=== PATIENT | female | born 1995 | race Caucasian/White ===

== ENCOUNTER 2019-06-26 11:00 | Outpatient (RCR) ==
[2019-05-30 09:10] VITALS: BMI 21.7
--- NOTE | 2019-06-05 15:29 | RS.OPPTDN ---
Subjective Date of Note: 06/05/19 Visit #: 2 Number of visits approved by Insurance: pending Date of Evaluation: 06/04/19 Payer Source: Medicaid Treatment Diagnosis: polyneuropathy, gait abnormality, balance impaired, distal fibular fracture Current Subjective/complaints:: Patient reports right knee "gives way" when walking. States she is not doing much walking due to NWB on left and weakness on right. Reports some fatigue with exercise session today. *Precautions: NWB LLE Interventions - Exercise/Activities/Manual Therapy Exercises/Activities: Assisted hamstring and heel cord stretch on RLE. SLR ( with assist on left), hip abd/add. SAQ and alt hip flexion bialterally, with 1 1 /2# to right and assist to left LE. Isometric hip add with ball. Wand for overhead shoulder flexion and chest press, then shoulder ext with wand and yellow theraband. In sitting, alt hip flexion and LAQ (1 1/2# on right). Yellow theraband ham curl, scap retraction, biceps curls, and UE diagonals. Patient rec 'd CGA to mod with amb with RW, 60' x3reps. Patient demos slight LOB backwards and right knee yosi twice. Works on forward weight-shift in sitting, partial and full sit to/from stand. In standing with RW, works on toe-ups on the right LE with min assist. Patient given copy of additions to HEP. Total minutes of Exercise: EX 40mins, GT 14mins Manual Therapy: n/a HOME EXERCISE PROGRAM: pt given written HEP including; hamstring stretch, RLE heel cord stretch, QS, SLR, hip abd/add, as well as BUE elbow flex/ext, wrist flex/ext, theraputty ex for hands, shld flex, as well as chair push ups. Yellow theraband for scap retaction, biceps curl and UE diagonals. - Charges Timed Code Treatment Minutes: 54mins Total Treatment Time: 60mins Procedures billed for this date of service:: EX3, GT Assessment: Patient demos weakness and difficulty with balance, but is very motivated to progress. She is attentive to all patient education and HEP instruction. Patient Education: Home Exercise Program, Home Safety, Activity Modification Patient demonstrates compliance with HEP?: Yes Short Term Goals Goal #1: pt independent with initial HEP Goal to be met by: 06/13/19 Progress towards Goal:: Progressing Goal #2: pt transfer stand pivot bed to/from chair with CGA with rwx nwb LLE Goal to be met by: 06/13/19 Progress towards Goal:: Progressing Goal #3: pt amb 50ft with rwx NWB LLE with CGA to min x 1 Goal to be met by: 06/13/19 Progress towards Goal:: Progressing Goal #4: Improve BLE strength except L ankle 4/5 Goal to be met by: 06/13/19 Nursing Home Goals Goal #1: Improve dyn stand balance fair Goal to be met by: 07/02/19 Goal #2: pt amb functional in home distances with rwx NWB LLE with SBA Goal to be met by: 07/02/19 Goal #3: pt able to perform toileting including transfers independently Goal to be met by: 07/02/19 Goal #4: Strength BLE 4+/5 except L ankle Goal to be met by: 07/02/19 Plan Dates of Parts Administrator Goals: 07/02/19 Expiration date of current Insurance Approval:: 07/02/19 PLAN: Progress with strengthening and balance activity to return patient to safe and independent with ambulation and all functional activity.
--- NOTE | 2019-06-09 13:33 | RS.OPPTDN ---
Subjective Date of Note: 06/09/19 Visit #: 3 Number of visits approved by Insurance: pending Date of Evaluation: 06/04/19 Payer Source: Medicaid Treatment Diagnosis: polyneuropathy, gait abnormality, balance impaired, distal fibular fracture Current Subjective/complaints:: pt states she is feeling much more shaky the last couple of days which is causing interruption with sleep and increased difficulty with mobility. *Precautions: NWB LLE Pain Assessment - Pain Description Pain Location: L ankle Pain Description: Aching Current Pain Intensity: 3 when arrived increased to 5-6/10 with activity Interventions - Exercise/Activities/Manual Therapy Exercises/Activities: pt received assist with BLE hamstring stretch, RLE heel cord stretch, as well as performed SLR, hip abd/add with 1 1/2# on RLE and assist with LLE 2 sets of 10 reps. pt also performed in hooklying SAQ, alt hip flex with 1 1/2# on R 2 sets of 10 reps. pt performed shld flex, chest press with 1 # wand 2 sets of 10 reps. In sitting pt performed LAQ, seated hip flex with 1 1/2# on RLE, no weight on LLE 2 sets of 10 reps. pt also performed BUE scapular retraction, biceps curls, UE diagonals, elbow ext with yellow theraband 2 sets of 10 reps. pt requires rest periods during ex due to pain in L ankle. pt transferred chair to mat table with wx and NWB LLE with CGA to min x 1. pt unable to amb with standard wx due to UE weakness and rwx unavailable. Manual Therapy: n/a HOME EXERCISE PROGRAM: pt given written HEP including; hamstring stretch, RLE heel cord stretch, QS, SLR, hip abd/add, as well as BUE elbow flex/ext, wrist flex/ext, theraputty ex for hands, shld flex, as well as chair push ups. Yellow theraband for scap retaction, biceps curl and UE diagonals. - Charges Timed Code Treatment Minutes: 49 Total Treatment Time: 55 Procedures billed for this date of service:: ex 3 Assessment: pt more shakey today requiring rest periods between ex due to pain and weakness. pt progressing slowly toward goals. Patient Education: Home Exercise Program, Education of Plan of Care Patient demonstrates compliance with HEP?: Yes Short Term Goals Goal #1: pt independent with initial HEP Goal to be met by: 06/13/19 Progress towards Goal:: Progressing Goal #2: pt transfer stand pivot bed to/from chair with CGA with rwx nwb LLE Goal to be met by: 06/13/19 Progress towards Goal:: Progressing Goal #3: pt amb 50ft with rwx NWB LLE with CGA to min x 1 Goal to be met by: 06/13/19 Progress towards Goal:: Progressing Goal #4: Improve BLE strength except L ankle 4/5 Goal to be met by: 06/13/19 Progress towards Goal:: Progressing Noxious Weeds And Pest Inspector Goals Goal #1: Improve dyn stand balance fair Goal to be met by: 07/02/19 Goal #2: pt amb functional in home distances with rwx NWB LLE with SBA Goal to be met by: 07/02/19 Goal #3: pt able to perform toileting including transfers independently Goal to be met by: 07/02/19 Goal #4: Strength BLE 4+/5 except L ankle Goal to be met by: 07/02/19 Plan Dates of [facility] Goals: 07/02/19 Expiration date of current Insurance Approval:: pending PLAN: plan to continue to progress with strengthening, as well as transfer and gait training NWB LLE.
--- NOTE | 2019-06-12 13:24 | RS.OPPTDN ---
Subjective Date of Note: 06/12/19 Visit #: 4 Number of visits approved by Insurance: pending Date of Evaluation: 06/04/19 Payer Source: Medicaid Treatment Diagnosis: polyneuropathy, gait abnormality, balance impaired, distal fibular fracture Current Subjective/complaints:: Patient reports she feels she has lost strength with sit to/from stand since left ankle fx/casting. States she is pleased with her progress today and is more confident with transfers. *Precautions: NWB LLE Pain Assessment - Pain Description Pain Location: B feet, left ankle Current Pain Intensity: mild to mod Interventions - Exercise/Activities/Manual Therapy Exercises/Activities: pt received assist with BLE hamstring stretch, RLE heel cord stretch, as well as performed SLR 1 1/2# and SAQ increased to 3 1/2#. Hip abd/add right no weight. LEft Hip abd/add and SLR with assist. Alt hip flexion in hooklying. UE pulldowns with wand and yellow and red therabands. 3# wand for chest press. Holds ball overhead for isometric horz add and overhead flexion. In sitting, LAQ, seated hip flex, red theraband BUE scapular retraction. Worked on sit to/from stand, multiple reps and different table heights. Focus on scooting to edge of seat and forward weight-shift. Gait training with RW x80 ' with CGA, with CGA to Min assist on turns. Standing with RW for weight shift , right toe-ups, right mini squat. Ended with right LE for leg press 15# with foot in 2 different positions. Total minutes of Exercise: EX 45mins, GT 8mins Manual Therapy: n/a HOME EXERCISE PROGRAM: pt given written HEP including; hamstring stretch, RLE heel cord stretch, QS, SLR, hip abd/add, as well as BUE elbow flex/ext, wrist flex/ext, theraputty ex for hands, shld flex, as well as chair push ups. Yellow theraband for scap retaction, biceps curl and UE diagonals. - Charges Timed Code Treatment Minutes: 53mins Total Treatment Time: 55mins Procedures billed for this date of service:: EX3, GT Assessment: Patient progressing with strengthening exercise and with short ambulation, NWB on L, with RW. Patient Education: Body/Joint mechanics, Home Exercise Program, Home Safety, Activity Modification Patient demonstrates compliance with HEP?: Yes Short Term Goals Goal #1: pt independent with initial HEP Goal to be met by: 06/13/19 Progress towards Goal:: Progressing Goal #2: pt transfer stand pivot bed to/from chair with CGA with rwx nwb LLE Goal to be met by: 06/13/19 Progress towards Goal:: Progressing Goal #3: pt amb 50ft with rwx NWB LLE with CGA to min x 1 Goal to be met by: 06/13/19 Progress towards Goal:: Progressing Goal #4: Improve BLE strength except L ankle 4/5 Goal to be met by: 06/13/19 Progress towards Goal:: Progressing Skilled Nursing Goals Goal #1: Improve dyn stand balance fair Goal to be met by: 07/02/19 Goal #2: pt amb functional in home distances with rwx NWB LLE with SBA Goal to be met by: 07/02/19 Goal #3: pt able to perform toileting including transfers independently Goal to be met by: 07/02/19 Goal #4: Strength BLE 4+/5 except L ankle Goal to be met by: 07/02/19 Plan Dates of Client Care Specialist Goals: 07/02/19 Expiration date of current Insurance Approval:: 07/02/19 PLAN: Progress with strengthening and ambulation, working toward safe and independent.
--- NOTE | 2019-06-17 15:39 | RS.OPPTDN ---
Subjective Date of Note: 06/17/19 Visit #: 5 Number of visits approved by Insurance: pending Date of Evaluation: 06/04/19 Payer Source: Medicaid Treatment Diagnosis: polyneuropathy, gait abnormality, balance impaired, distal fibular fracture Current Subjective/complaints:: Patient reports she is stronger each day with transfers. States feeling in her hands is improving. Reports being "shakey" and having fatigue with gait training. *Precautions: NWB LLE Interventions - Exercise/Activities/Manual Therapy Exercises/Activities: pt received assist with BLE hamstring stretch, RLE heel cord stretch. Right SLR and hip abd. SAQ increased to 4# 20reps, then 3# 15reps. Left hip abd/add and SLR with assist. Alt hip flexion in hooklying with 3# to the right. UE pulldowns with wand and yellow and red therabands. 3# wand for chest press. Holds ball overhead for isometric horz add and overhead flexion. In sitting, LAQ and alt hip flex, 2 1/2# to right. Red theraband B hip abd, and scapular retraction. Worked on sit to/from stand, multiple reps and different table heights. Worked on a slow stand to sit attempting to use the right LE only. In standing, left hip abd and hip flexion. Gait training with RW 30' x4reps throughout treatment session, with CGA. Leg press 15# with foot in 2 different positions, total of 3 sets of 20reps. Patient given different sized rubber bands and yellow theraband to use in sewing hoop, both for resistive finger flex/ext and to improve movement control. Total minutes of Exercise: EX 45mins, GT 12mins Manual Therapy: n/a HOME EXERCISE PROGRAM: pt given written HEP including; hamstring stretch, RLE heel cord stretch, QS, SLR, hip abd/add, as well as BUE elbow flex/ext, wrist flex/ext, theraputty ex for hands, shld flex, as well as chair push ups. Yellow theraband for scap retaction, biceps curl and UE diagonals. - Charges Timed Code Treatment Minutes: 57mins Total Treatment Time: 57mins Procedures billed for this date of service:: EX3, GT Assessment: Patient continues to progress with strengthening and demos improved balance and independence with sit to/from stand transfers. Patient Education: Home Exercise Program Patient demonstrates compliance with HEP?: Yes Short Term Goals Goal #1: pt independent with initial HEP Goal to be met by: 06/13/19 Progress towards Goal:: Progressing Goal #2: pt transfer stand pivot bed to/from chair with CGA with rwx nwb LLE Goal to be met by: 06/13/19 Progress towards Goal:: Met Goal #3: pt amb 50ft with rwx NWB LLE with CGA to min x 1 Goal to be met by: 06/13/19 Progress towards Goal:: Progressing Goal #4: Improve BLE strength except L ankle 4/5 Goal to be met by: 06/13/19 Progress towards Goal:: Progressing Residential Goals Goal #1: Improve dyn stand balance fair Goal to be met by: 07/02/19 Goal #2: pt amb functional in home distances with rwx NWB LLE with SBA Goal to be met by: 07/02/19 Goal #3: pt able to perform toileting including transfers independently Goal to be met by: 07/02/19 Goal #4: Strength BLE 4+/5 except L ankle Goal to be met by: 07/02/19 Plan Dates of Chocolate Coater Goals: 07/02/19 Expiration date of current Insurance Approval:: 07/02/19 PLAN: Progress strength to increase independence with transfers and ambulation with RW.
--- NOTE | 2019-06-19 14:33 | RS.OPPTDN ---
Subjective Date of Note: 06/19/19 Visit #: 6 Number of visits approved by Insurance: Pending Date of Evaluation: 06/04/19 Payer Source: Medicaid Treatment Diagnosis: polyneuropathy, gait abnormality, balance impaired, distal fibular fracture Current Subjective/complaints:: Patient reports she is seeing improvement with her transfers. *Precautions: NWB LLE Interventions - Exercise/Activities/Manual Therapy Exercises/Activities: Pt received assist with BLE hamstring stretch, RLE heel cord stretch. Right SLR and hip abd with 1 1/2# . SAQ 4# 3s/10reps. Left hip abd/add and SLR with assist. Began SLR circles cw and ccw. Alt hip flexion in hooklying with 3# to the right and added 1 1/2# to the left. UE pulldowns with wand and red therabands. 3# wand for chest press and overhead flexion. 4# weighted ball for UE horz abd with trunk rotation, short range. In sitting, LAQ and alt hip flex, 2 1/2# to right. Red theraband B hip abd, and scapular retraction. Worked on sit to/from stand, multiple reps and different table heights. Worked on a slow stand to sit attempting to use the right LE only. In standing, left hip abd and hip flexion and right knee bend/mini-squats. Ended with leg press 15#, 2s/30reps. And yellow theraband for resisted overhead shoulder flex and ext, 10reps each. Gait training with RW 30' x4reps throughout treatment session, with CGA. Leg press 15# with foot in 2 different positions, total of 3 sets of 20reps. Patient given different sized rubber bands and yellow theraband to use in sewing hoop, both for resistive finger flex /ext and to improve movement control. Total minutes of Exercise: EX 40mins, Therapeutic Activity 16mins Manual Therapy: n/a HOME EXERCISE PROGRAM: pt given written HEP including; hamstring stretch, RLE heel cord stretch, QS, SLR, hip abd/add, as well as BUE elbow flex/ext, wrist flex/ext, theraputty ex for hands, shld flex, as well as chair push ups. Yellow theraband for scap retaction, biceps curl and UE diagonals. - Charges Timed Code Treatment Minutes: 56mins Total Treatment Time: 60mins Procedures billed for this date of service:: EX3, TA Assessment: Patient progressing with transfers and strengthening exercises. Patient Education: Home Exercise Program, Home Safety, Activity Modification Patient demonstrates compliance with HEP?: Yes Short Term Goals Goal #1: pt independent with initial HEP Goal to be met by: 06/13/19 Progress towards Goal:: Met Goal #2: pt transfer stand pivot bed to/from chair with CGA with rwx nwb LLE Goal to be met by: 06/13/19 Progress towards Goal:: Met Goal #3: pt amb 50ft with rwx NWB LLE with CGA to min x 1 Goal to be met by: 06/13/19 Progress towards Goal:: Progressing Goal #4: Improve BLE strength except L ankle 4/5 Goal to be met by: 06/13/19 Progress towards Goal:: Progressing Clinical Biostatistics Director Goals Goal #1: Improve dyn stand balance fair Goal to be met by: 07/02/19 Goal #2: pt amb functional in home distances with rwx NWB LLE with SBA Goal to be met by: 07/02/19 Goal #3: pt able to perform toileting including transfers independently Goal to be met by: 07/02/19 Goal #4: Strength BLE 4+/5 except L ankle Goal to be met by: 07/02/19 Plan Dates of [facility] Care Goals: 07/02/19 Expiration date of current Insurance Approval:: 07/02/19 PLAN: Progress with strengthening exercise, functional ambulation, and mobility.
--- NOTE | 2019-06-24 14:52 | RS.OPPTDN ---
Subjective Date of Note: 06/24/19 Visit #: 7 Number of visits approved by Insurance: pending Date of Evaluation: 06/04/19 Payer Source: Medicaid Treatment Diagnosis: polyneuropathy, gait abnormality, balance impaired, distal fibular fracture Current Subjective/complaints:: Patient reports she is getting stronger. States she is doing much better with standing and transfers. She also reports improvement in feeling in bilateral hands/finger tips. She does states she is able to start removing boot and doing active left ankle df/pf. *Precautions: NWB LLE Pain Assessment - Pain Description Pain Location: left ankle Current Pain Intensity: mild to mod with some activity Interventions - Exercise/Activities/Manual Therapy Exercises/Activities: Assisted with BLE hamstring stretch, RLE heel cord stretch. Right SLR and hip abd with 1 1/2# . SAQ 4# 3s/10reps. Left hip abd/ add and SLR without. Alt hip flexion in hooklying with 3# to the right and 1 1/2 # to the left. UE pulldowns with wand and red therabands. 3# wand for chest press and overhead flexion. 2# ball for UE overhead flexion and UE diagonals. Began double hip flexion with ball between knees, then short LTR with hips in flexion and feet off mat table. In sitting, LAQ and alt hip flex, increased to 4# to right and 1 1/2# to left. Red theraband B hip abd, and scapular retraction. Worked on sit to/from stand, multiple reps and different table heights. Worked on a slow, controlled stand to sit. Gait training with RW 35' x2reps with CGA. Assisted onto statioary bike and given assist with left LE to perform slow forward and retro revolutions. Patient performs for 1 1/2mins with assist throughout. Total minutes of Exercise: EX 45mins, TA 12mins Manual Therapy: n/a HOME EXERCISE PROGRAM: pt given written HEP including; hamstring stretch, RLE heel cord stretch, QS, SLR, hip abd/add, as well as BUE elbow flex/ext, wrist flex/ext, theraputty ex for hands, shld flex, as well as chair push ups. Yellow theraband for scap retaction, biceps curl and UE diagonals. - Charges Timed Code Treatment Minutes: 57mins Total Treatment Time: 57mins Procedures billed for this date of service:: EX3, TA Assessment: Patient progressing with strength and with ability to perform transfers and short distance amb with RW and CGA. Patient Education: Home Exercise Program, Home Safety Patient demonstrates compliance with HEP?: Yes Short Term Goals Goal #1: pt independent with initial HEP Goal to be met by: 06/13/19 Progress towards Goal:: Met Goal #2: pt transfer stand pivot bed to/from chair with CGA with rwx nwb LLE Goal to be met by: 06/13/19 Progress towards Goal:: Met Goal #3: pt amb 50ft with rwx NWB LLE with CGA to min x 1 Goal to be met by: 06/13/19 Progress towards Goal:: Partially Met Goal #4: Improve BLE strength except L ankle 4/5 Goal to be met by: 06/13/19 Progress towards Goal:: Progressing Video Surveillance Technician Goals Goal #1: Improve dyn stand balance fair Goal to be met by: 07/02/19 Progress towards goal: Met Goal #2: pt amb functional in home distances with rwx NWB LLE with SBA Goal to be met by: 07/02/19 Progress towards goal: Progressing Goal #3: pt able to perform toileting including transfers independently Goal to be met by: 07/02/19 Progress towards goal: Progressing Goal #4: Strength BLE 4+/5 except L ankle Goal to be met by: 07/02/19 Plan Dates of Long-Term Goals: 07/02/19 Expiration date of current Insurance Approval:: 07/02/19 PLAN: Progress with strengthening to increase patient independence with functional activities.
--- NOTE | 2019-06-26 16:16 | RS.OPPTDN ---
Subjective Date of Note: 06/26/19 Visit #: 8 Number of visits approved by Insurance: 8 through 07/02/19 Date of Evaluation: 06/04/19 Payer Source: Medicaid Treatment Diagnosis: polyneuropathy, gait abnormality, balance impaired, distal fibular fracture Current Subjective/complaints:: Patient reports she has seen progress with her strength, including transfers, since starting therapy. States she will have follow-up with orthopedic physiciain on Sunday and is hoping to be able to weight-bear on left LE. She will continue HEP next week until continuation orders received. *Precautions: NWB LLE Pain Assessment - Pain Description Pain Location: left ankle Current Pain Intensity: only mild at times Interventions - Exercise/Activities/Manual Therapy Exercises/Activities: Assisted with BLE hamstring stretch, RLE heel cord stretch. Right SLR and hip abd with 1 1/2# . SAQ 4# 3s/10reps. Left hip abd/ add and SLR without. Alt hip flexion in hooklying with 3# to the right and 1 1/2 # to the left. UE pulldowns and overhead flexion with wand and red theraband. 3 # cuff for UE overhead flexion and UE diagonals. Added 3# to right and 1 1/2# to left for double hip flexion with ball between knees, then short LTR with hips in flexion and feet off mat table. In sitting, LAQ and alt hip flex, 4# to right and 1 1/2# to left. Red theraband hip abd, and scapular retraction. Worked on sit to/from stand, multiple reps and different table heights. Gait training with RW 40' x2reps with CGA. Assisted onto leg press and performs at 15 # [id number] at slow pace. Total minutes of Exercise: EX 43mins, TA 12mins Manual Therapy: n/a HOME EXERCISE PROGRAM: pt given written HEP including; hamstring stretch, RLE heel cord stretch, QS, SLR, hip abd/add, as well as BUE elbow flex/ext, wrist flex/ext, theraputty ex for hands, shld flex, as well as chair push ups. Yellow theraband for scap retaction, biceps curl and UE diagonals. - Objective Findings Observations,measurements,etc.: Patient demos right LE to 4- to 4/5, with ankle 4-/5 in limited ROM. Left hip flexion 4- to 4/5 and lower leg not assessed. - Charges Timed Code Treatment Minutes: 55mins Total Treatment Time: 58mins Procedures billed for this date of service:: EX3, TA Assessment: Patient demos increased strength and improvement in transfers. Patient should see significant improvement when she is able to WB on the left LE. Patient Education: Home Exercise Program, Home Safety, Activity Modification Patient demonstrates compliance with HEP?: Yes Short Term Goals Goal #1: pt independent with initial HEP Goal to be met by: 06/13/19 Progress towards Goal:: Met Goal #2: pt transfer stand pivot bed to/from chair with CGA with rwx nwb LLE Goal to be met by: 06/13/19 Progress towards Goal:: Met Goal #3: pt amb 50ft with rwx NWB LLE with CGA to min x 1 Goal to be met by: 06/13/19 Progress towards Goal:: Partially Met Goal #4: Improve BLE strength except L ankle 4/5 Goal to be met by: 06/13/19 Progress towards Goal:: Progressing Reading Specialist Goals Goal #1: Improve dyn stand balance fair Goal to be met by: 07/02/19 Progress towards goal: Met Goal #2: pt amb functional in home distances with rwx NWB LLE with SBA Goal to be met by: 07/02/19 Progress towards goal: Progressing Goal #3: pt able to perform toileting including transfers independently Goal to be met by: 07/02/19 Progress towards goal: Progressing Goal #4: Strength BLE 4+/5 except L ankle Goal to be met by: 07/02/19 Plan Dates of Reading Specialist Goals: 07/02/19 Expiration date of current Insurance Approval:: 07/02/19 PLAN: Patient may continue therapy for strengthening, ROM, to increase functional independence.
== END 2019-07-05 23:59 ==
PROVIDERS: ATTEND Physical Medicine & Rehabilitation
DX: G62.9 Polyneuropathy, unspecified (principal)